=== PATIENT | male | born 1980 | race Hispanic/Latino ===

== ENCOUNTER 2018-07-26 09:02 | Emergency (ER) | payer BC ==
[~2018-07-26] VITALS: Ht 182.9 cm; Wt 113.4 kg
--- OUTSIDE RECORDS SUMMARY | 2018-07-26 09:05 | XMS REPORT ---
Author Author [facility] Address Unknown Phone Unavailable Care Team Providers Care [employer] Employment Representative Name Role Phone Unavailable Unavailable Payers Payer Name Policy Type Policy Number Effective Date Expiration Date Problems This patient has no known problems. Allergies, Adverse Reactions, Alerts Allergy Name Allergy Type Status Severity Reaction(s) Onset Date Inactive Date Treating Clinician Comments No Known Allergies DA Active U 2018-06-29 00:00:00 Medications This patient has no known medications.
--- OUTSIDE RECORDS SUMMARY | 2018-07-26 09:05 | XMS REPORT | Clinical Summary ---
Author Author [facility] Organization [facility] Address Unknown Phone Unavailable Care Team Providers Care Mineral Mixer Name Role Phone Radha Alfaro DO PCP Allergies No Known Allergies Medications End Date Status Medication Sig Dispensed Refills Start Date Active naproxen sodium (ALEVE Take by 0 ORAL)Indications: Acute mouth. bilateral low back pain without sciatica Active cyclobenzaprine Take 1 tablet 20 tablet 0 (FLEXERIL) 10 mg (10 mg total) 8 tabletIndications: Acute by mouth bilateral low back pain nightly as without sciatica needed for muscle spasms for up to 20 doses. Active Problems No known active problems Encounters Care Team Description Date Type Specialty Radha Alfaro DO Acute bilateral low back pain without sciatica (Primary Dx) 07/23/2018 Office Visit Family Medicine after 07/25/2017 Family History Relation Name Status Comments Brother Alive Father Maternal Grandfather Alive Maternal Grandmother Alive Mother Alive Paternal Grandfather Paternal Grandmother Sister Alive Social History Date Tobacco Use Types Packs/Day Years Used Started: 10/23/2010 Current Every Day Smoker Cigarettes 1 Smokeless Tobacco: Never Used Tobacco Cessation: Ready to Quit: Yes; Counseling Given: Yes Alcohol Use Drinks/Week oz/Week Comments Yes 1 Cans of 0.6 beer Sex Assigned at Date Recorded Not on file Industry Job Start Date Occupation Not on file Not on file Not on file Travel End Travel History Travel Start No recent travel history available. Last Filed Vital Signs Time Taken Vital Sign Reading 07/23/2018 9:57 AM [facility] Blood Pressure 128/80 07/23/2018 9:57 AM [facility] Pulse 84 07/23/2018 9:57 AM [facility] Temperature 36.7 C (98.1 F) 07/23/2018 9:57 AM [facility] Respiratory Rate 20 07/23/2018 9:57 AM [facility] Oxygen Saturation 100% - Inhaled Oxygen - Concentration 07/23/2018 9:57 AM [facility] Weight 115 kg (253 lb) 07/23/2018 9:57 AM [facility] Height 182.9 cm (6') 07/23/2018 9:57 AM [facility] Body Mass Index 34.31 Plan of Treatment Health Maintenance Due Date Last Done Comments INFLUENZA VACCINE 07/23/2019 Postponed from 03/27/2018 (Patient Refused) HEPATITIS B VACCINES Aged Out No longer eligible based on patient's age to complete this topic IPV VACCINES Aged Out No longer eligible based on patient's age to complete this topic MENINGOCOCCAL VACCINE Aged Out No longer eligible based on patient's age to complete this topic Results Not on fileafter 07/25/2017 Insurance Payer Benefit Subscriber ID Type Phone Address Plan / Group BCBS BCBS xxxxxxxxxxxx PPO CHOICE PPO/HERNANDEZ GLEZ PPO Advance Directives Patient has advance care planning documents on file. For more information, [facility] contact: Sebastien Cage [address] [place] [address]
[2018-07-26] MEDS ORDERED: DIAZEPAM 2 MG TAB PO ONE (09:15)
[2018-07-26] MEDS ORDERED: PREDNISONE 20 MG TAB PO ONE (09:15)
[2018-07-26] MEDS ORDERED: KETOROLAC TROMETHAMINE 60 MG/2 ML VIAL IM ONE (09:15)
[2018-07-26] MEDS ORDERED: DIAZEPAM 5 MG TAB PO NR (09:30)
--- NOTE | 2018-07-26 10:21 | Diagnostic Imaging Report ---
PROCEDURE:L-SPINE COMPLETE COMPARISON:None. INDICATIONS:LOW BACK PAIN FINDINGS: There are 6 nonrib-bearing lumbar-type vertebral bodies. No acute, displaced fracture or subluxation. There are bilateral pars interarticularis defects at L6 with approximately 3 mm anterolisthesis over the sacrum. Intervertebral disc spaces and facet joints are otherwise well maintained. Sacroiliac joints are intact. CONCLUSION: No acute osseous abnormality. 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 Dictated by: Campos Villatoro M.D. on 07/26/2018 at 10:32 Electronically approved by: Campos Villatoro M.D. on 07/26/2018 at 10:32
[2018-07-26 11:33] VITALS: BP 121/69
== END 2018-07-26 11:30 | disposition home or self-care (01) ==
LOC: ER 09:02
DX: M54.5 Low back pain (principal); S39.012A Strain of muscle, fascia and tendon of lower back, initial encounter; X50.1XXA Overexertion from prolonged static or awkward postures, initial encounter; Y99.0 Civilian activity done for income or pay; F17.210 Nicotine dependence, cigarettes, uncomplicated
CPT/HCPCS: 72110; 99283; J1885; J7512